=== PATIENT | female | born 1990 | race Caucasian/White ===

== ENCOUNTER → 2018-11-09 | Emergency (ER) | payer OTHER ==
[~2018-11-09] VITALS: Ht 162.6 cm; Wt 72.6 kg
[~2018-11-09] MED LIST: DOXYCYCLINE HY100 MG PO; PRILOSEC OTC20 MG PO; TIGAN300 MG PO
== END | disposition home or self-care (01) ==
LOC: ER 20:30
DX: M94.0 Chondrocostal junction syndrome [Tietze] (principal)

== ENCOUNTER 2019-03-29 23:32 | Emergency (ER) | payer OTHER ==
[~2019-03-29] VITALS: Ht 162.6 cm; Wt 68.0 kg
== END 2019-03-30 05:02 | disposition home or self-care (01) ==
LOC: ER 23:32
DX: N83.292 Other ovarian cyst, left side (principal)

== ENCOUNTER 2019-08-02 13:34 | Emergency (ER) | payer OTHER ==
[~2019-08-02] VITALS: Ht 162.6 cm; Wt 68.0 kg
== END 2019-08-02 19:02 | disposition home or self-care (01) ==
LOC: ER
DX: N83.292 Other ovarian cyst, left side (principal)